=== PATIENT | male | born 1970 | race Caucasian/White ===

== ENCOUNTER → 2018-06-14 13:18 | Outpatient (CLI) | payer OTHER, SELFPAY ==
--- NOTE | 2018-06-14 | DI.MRI.S_ITS ---
PROCEDURE: MR CERVICAL SPINE WO CON INDICATIONS: PARESTHESIA OF SKIN TECHNIQUE: Noncontrast sagittal T1 spin echo and T2 fast spin echo, sagittal STIR, foraminal oblique sagittal T2 fast spin echo, and axial gradient echo or T2 fast spin echo through the cervical spine. COMPARISON: None. FINDINGS: Image quality: Diagnostic, with note made of motion artifact. Alignment and Curvature: There is normal bony alignment. Bone Marrow: Marrow demonstrates normal overall signal. Spinal Cord: Visualized spinal cord has normal size and signal. No cerebellar tonsillar herniation. Paraspinous Soft Tissues: No paravertebral masses. Prevertebral soft tissues are normal in thickness. C2-C3: The disc height is well-preserved. A mild degree of generalized disc osteophyte complex is seen. Mild facet joint hypertrophy is seen. There is moderate right-sided and mild left-sided neural foraminal narrowing seen. Minimal to mild central canal narrowing is seen. C3-C4: The disc height is well-preserved. Loss of disc signal is seen at this level. Moderate disc osteophyte complex is seen, with a central disc is protrusion, as on series 5 image 21. Mild facet joint hypertrophy is seen. There is moderate right-sided and moderate to severe left-sided neural foraminal narrowing seen. Moderate central canal narrowing is seen, with associated mass effect upon the ventral spinal cord. C4-C5: The disc height is relatively well-preserved. Loss of disc signal is seen. Mild to moderate disc osteophyte complex is seen. There is a focal central disc osteophyte formation seen, as on series 5 image 25 and there is moderate right-sided and mild left-sided neural foraminal narrowing seen. Moderate central canal narrowing is seen, with associated mass effect upon the ventral spinal cord. C5-C6: The disc height is well-preserved. Loss of disc signal is seen at this level. Moderate disc osteophyte complex is seen, with a central/left disc protrusion, as on series 5 image 30. Moderate facet joint hypertrophy is seen. There is mild right-sided and no significant left-sided neural foraminal narrowing seen. At least moderate central canal narrowing is seen, with associated mass effect on the ventral spinal cord. C6-C7: Mild loss of disc height is seen. Loss of disc signal is seen. Moderate generalized disc osteophyte complex is seen. Mild facet joint hypertrophy is seen. Mild bilateral neural foraminal narrowing is seen. Moderate central canal narrowing is seen, with associated mass effect upon the ventral spinal cord. C7-T1: No significant abnormality is seen. IMPRESSION: Multiple levels of cervical spine degenerative change are seen, with at least moderate central canal narrowing at C3-C4, C4-C5, C5-C6, and C6-C7. Dictated by: Wilver Mcghee M.D. on 06/14/2018 at 14:47 Approved by: Wilver Mcghee M.D. on 06/14/2018 at 14:51
== END ==
PROVIDERS: PCP Family Medicine Geriatric Medicine; Visit Provider Family Medicine Geriatric Medicine
DX: R20.2 Paresthesia of skin (principal); M50.31 Other cervical disc degeneration, high cervical region; M48.02 Spinal stenosis, cervical region
CPT/HCPCS: 72141

== ENCOUNTER → 2022-08-07 07:57 | Outpatient (CLI) | payer OTHER, SELFPAY ==
--- NOTE | 2022-08-07 | DI.MRI.S_ITS ---
PROCEDURE: MR LUMBAR SPINE WO CON INDICATIONS: SPINAL STENOSIS OF LUMBAR REGION TECHNIQUE: Noncontrast sagittal T1 spin echo and T2 fast echo, sagittal STIR, and T2 fast spin echo through the lumbar spine. In cases with scoliosis, additional coronal T2 fast spin echo may be performed. COMPARISON: [facility], CR, XR LUMBAR SPINE 2 OR 3 VIEWS, 08/05/2022, 15:56. FINDINGS: Image quality: This examination is limited by involuntary motion artifact. Alignment and Curvature: There is normal bony alignment. Bone Marrow: Marrow is of normal overall signal. No acute vertebral body compression fractures. Spinal Cord: Conus medullaris terminates at the T12-L1 level. Visualized cord demonstrates normal signal and size. Paraspinous Soft Tissues: No paravertebral masses. T12-L1: Normal appearance. L1-L2: Normal appearance. L2-L3: Normal appearance. L3-L4: No significant abnormality is seen. L4-L5: Moderate loss of disc height is seen. Loss of disc signal is seen. Reactive marrow endplate changes are seen, which are hyperintense on T1-weighted and T2-weighted imaging and most consistent with fatty metaplasia (Modic type II changes). Moderate generalized disc bulge is seen. There is a central/left disc protrusion seen. There is a focal annular fissure seen posteriorly. Mild facet joint hypertrophy is seen. There is moderate right-sided and at least moderate left-sided neural foraminal narrowing. There is a mild degree of compression seen upon the exiting left L4 nerve root. Mild central canal narrowing is seen. L5-S1: The disc height and disc signal are relatively well preserved. Mild generalized disc bulge is seen. Mild facet joint hypertrophy is seen. No significant neural foraminal or central canal narrowing can be seen. IMPRESSION: Focal L4-L5 degenerative change, including at least moderate left-sided neural foraminal narrowing, with a degree of compression upon the exiting left L4 nerve root. Dictated by: Wilver Mcghee M.D. on 08/07/2022 at 8:33 Approved by: Wilver Mcghee M.D. on 08/07/2022 at 8:36
== END ==
PROVIDERS: PCP Family Medicine; Referring Provider Orthopaedic Surgery; Visit Provider Orthopaedic Surgery
DX: M48.061 Spinal stenosis, lumbar region without neurogenic claudication (principal); M47.26 Other spondylosis with radiculopathy, lumbar region
CPT/HCPCS: 72148